=== PATIENT | female | born 1985 | race Caucasian/White ===

== ENCOUNTER 2019-02-14 14:53 | Emergency (ER) | payer SELFPAY ==
--- NOTE | 2019-02-14 16:34 | ER Document Report ---
ED Medical Screen (RME) - General Chief Complaint: Vaginal Bleeding Stated Complaint: VAGINAL BLEEDING Time Seen by Provider: 02/14/19 16:32 TRAVEL OUTSIDE OF THE [place] IN LAST 30 DAYS: No - HPI Notes: 02/14/19 16:32 Patient is a 33-year-old female with no significant past medical history aside from bilateral inguinal hernia surgery in the past who presents complaining of mid lower pelvic and left lower pelvic pain intermittently over the past month. Patient states that the most recent flareup started a few days ago with spotting and bleeding again. She has not had any other vaginal discharge or odor. She is asking about STD testing as well as testing. Denies QUIROZ, fever, neck pain, URI, CP, SOB, dysuria, back pain, or rash. I have treated and performed a rapid initial assessment of this patient. A comprehensive ED assessment and evaluation of the patient, analysis of test results and completion of medical decision making process will be conducted by additional ED providers. PHYSICAL EXAMINATION: GENERAL: Well-appearing, well-nourished and in no acute distress. A&Ox4. Answers questions appropriately. LUNGS: Breath sounds clear to auscultation bilaterally and equal. No wheezes rales or rhonchi. HEART: Regular rate and rhythm without murmurs, rubs, gallops. ABDOMEN: Soft, nondistended abdomen. No guarding, no rebound. Normal bowel sounds present. No CVA tenderness bilaterally. + lower pelvic tenderness (cannot elicit thorough abd exam w/o bed, however). - Related Data Allergies/Adverse Reactions: No Known Allergies Allergy (Unverified 02/14/19 14:53) Physical Exam - Vital signs Vitals: Temp Pulse Resp BP Pulse Ox 98.9 F 91 18 147/91 H 98 02/14/19 14:53 02/14/19 14:53 02/14/19 14:53 02/14/19 14:53 02/14/19 14:53 Course - Vital Signs Vital signs: Temp Pulse Resp BP Pulse Ox 98.9 F 91 18 147/91 H 98 02/14/19 14:53 02/14/19 14:53 02/14/19 14:53 02/14/19 14:53 02/14/19 14:53
[2019-02-14] MEDS ORDERED: ACETAMINOPHEN 325 MG TABLET PO ONE (16:35)
[2019-02-14 17:52] LABS: APPEARANCE,URINE CLOUDY; BILIRUBIN,URINE NEGATIVE (NEGATIVE); GLUCOSE, URINE NEGATIVE (NEGATIVE); KETONES,URINE NEGATIVE (NEGATIVE); LEUKOCYTE ESTERASE,URINE MODERATE (NEGATIVE); NITRITE,URINE POSITIVE (NEGATIVE); PROTEIN,URINE 30 mg/dL (NEGATIVE); URINE SPECIFIC GRAVITY 1.023; UROBILINOGEN,URINE NEGATIVE mg/dL (<2.0)
[2019-02-14 17:53] LABS: COLOR,URINE YELLOW
[2019-02-14 17:57] LABS: ABSOLUTE BASOPHILS # (AUTO) 0.1 10^3/uL (0.0-0.2); ABSOLUTE EOSINOPHILS # (AUTO) 0.4 10^3/uL (0.0-0.6); ABSOLUTE MONOCYTES (AUTO) 0.7 10^3/uL (0.1-1.4); BASOPHILS % (AUTO) 0.7 % (0-2); EOSINOPHILS % (AUTO) 5.1 % (0-6); HEMATOCRIT 43.6 % (36.0-47.0); LYMPHOCYTES % (AUTO) 24.2 % (13-45); MEAN CORPUSCULAR HEMOGLOBIN 31.6 pg (27.0-33.4); MEAN CORPUSCULAR HGB CONC 34.3 g/dL (32.0-36.0); MEAN CORPUSCULAR VOLUME 92 fl (80-97); MONOCYTES % (AUTO) 9.1 % (3-13); RED BLOOD COUNT 4.74 10^6/uL (3.72-5.28); RED CELL DISTRIBUTION WIDTH 12.9 % (11.5-14.0); SEGMENTED NEUTROPHILS % (AUTO) 60.9 % (42-78); TOTAL CELLS COUNTED % (AUTO) 100 %; WHITE BLOOD COUNT 8.1 10^3/uL (4.0-10.5)
[2019-02-14 18:15] LABS: ALANINE AMINOTRANSFERASE 94 U/L (9-52); ALBUMIN 4.4 g/dL (3.5-5.0); ALKALINE PHOSPHATASE 111 U/L (38-126); ANION GAP 7 (5-19); ASPARTATE AMINO TRANSFERASE 57 U/L (14-36); BILIRUBIN,DIRECT 0.3 mg/dL (0.0-0.4); BILIRUBIN,TOTAL 0.3 mg/dL (0.2-1.3); BLOOD UREA NITROGEN 10 mg/dL (7-20); CALCIUM 9.8 mg/dL (8.4-10.2); CARBON DIOXIDE 24 mmol/L (22-30); CHLORIDE 107 mmol/L (98-107); GLUCOSE 91 mg/dL (75-110); POTASSIUM 4.4 mmol/L (3.6-5.0); SODIUM 138.4 mmol/L (137-145); TOTAL PROTEIN 8.8 g/dL (6.3-8.2)
[2019-02-14 18:23] LABS: PLATELET COUNT 223 10^3/uL (150-450)
--- NOTE | 2019-02-14 18:46 | RADIOLOGY REPORT (SQ) ---
EXAM DESCRIPTION: U/S NON OB PEL TV W/DOPPLER COMPLETED DATE/TIME: 02/14/2019 6:23 pm REASON FOR STUDY: Lt/mid pelvic pain, spotting LMP 01/17/2019 COMPARISON: None. TECHNIQUE: Dynamic and static grayscale images acquired of the pelvis via transvaginal approach and recorded on PACS. Additional selected color Doppler and spectral images recorded. LIMITATIONS: None. FINDINGS: UTERUS: 22 mm posterior fibroid. ENDOMETRIAL STRIPE: No focal or generalized thickening. No masses. CERVIX: 2.6 cm. No nabothian cysts. RIGHT OVARY AND DOPPLER: Normal size. Normal arterial flow. Questionable small solid area in the ad nexa adjacent to the ovary measuring 2 x 1.3 x 1 cm. LEFT OVARY AND DOPPLER: Enlarged. Multiple complex cystic areas with internal echoes. Thickened sep ta. Largest cyst measures 3.9 x 3.4 x 3.3 cm. FREE FLUID: None noted. OTHER: No other significant finding. MEASUREMENTS: UTERUS: 9 x 4.6 x 4.2 cm. ENDOMETRIAL STRIPE: 4 mm. RIGHT OVARY: 3.4 x 2.1 x 2.1 cm. LEFT OVARY: 8.1 x 5.6 x 4.5 cm. IMPRESSION: 1. 22 mm posterior uterine fibroid. 2. Multiple cysts with internal echoes in the left ovary. Thickened septa. Possible hemorrhagic cy sts. Possible endometrioma. Recommend follow-up ultrasound in 6 to 12 weeks. 3. Questionable small solid density in the right adnexa. Recommend follow-up ultrasound in 6 to 12 weeks. TECHNICAL DOCUMENTATION: JOB ID: [id number] [employer]- All Rights Reserved Rev Reading location - IP/workstation name: [email or web address]
[2019-02-14 21:36] LABS: T.VAGINALIS (WET MOUNT) NO TRICHOMONAS SEEN; WBCS (WET MOUNT) 2+ WBCS SEEN; YEAST (WET MOUNT) NO YEAST SEEN
[2019-02-14 21:37] LABS: EPITHELIALS (WET MOUNT) 3+ EPITHELIALS SEEN
[2019-02-14] MEDS ORDERED: CEPHALEXIN 500 MG CAPSULE PO ONE (21:59)
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
[2019-02-14 22:14] VITALS: BP 126/93
[2019-02-14 23:02] LABS: CHLAM PCR DETECTED (NOT DETECT)
== END 2019-02-14 22:14 | disposition home or self-care (01) ==
LOC: ER 14:53
DX: N39.0 Urinary tract infection, site not specified (principal); N83.202 Unspecified ovarian cyst, left side; N93.9 Abnormal uterine and vaginal bleeding, unspecified; R10.2 Pelvic and perineal pain; R30.0 Dysuria; F17.200 Nicotine dependence, unspecified, uncomplicated
CPT/HCPCS: 36415; 76830; 80053; 81001; 81025; 85025; 87086; 87088; 87186; 87210; 87491; 87591; 93976; 99284